=== PATIENT | female | born 1985 | race Caucasian/White ===

== ENCOUNTER → 2018-09-13 | Outpatient (CLI) | payer MEDICAID ==
[~2018-09-13] MED LIST: AMBIEN CR 12.12.5 MG PO; AMBIEN5 MG PO; AMITRIPTYLINE H25 M1 PO; BACTRIM DS 8001 TAB PO; BACTROBAN 22GM22 GM NAS; BENADRYL; CEPHALEXIN500 M1 PO; DEPAKOTE 250MG250 MG PO; ESCITALOPRAM; GLUCOPHAGE XR500 M1 PO; LEXAPRO 10MG10 MG PO; LORTAB 5/500 501 TAB PO; MELATONIN3 M1; MELATONIN5 M1 SL; PAXIL 20MG20 MG PO; PHENERGAN 25 TA25 MG PO; PRENATAL1 TA1 PO; PRILOSEC10 MG PO; PRILOTC; PROVENTIL0.09 MG/A1; PROZAC40 MG PO; SEPTRA DS 8001 TAB PO; TRAZODO50 MG PO
== END ==
LOC: MC.RAD 10:27
DX: N64.3 Galactorrhea not associated with childbirth (principal)

== ENCOUNTER 2018-12-15 17:21 | Emergency (ER) | payer MEDICAID ==
[~2018-12-15] VITALS: Ht 157.5 cm; Wt 86.4 kg
[2018-12-15 17:23] VITALS: TEMP 99
[2018-12-15 17:36] LABS: COLLECTION METHOD CLEAN CATCH
[2018-12-15 17:41] LABS: PH 5 (5-8); URINE APPEARANCE Hazy; URINE BACTERIA None Seen /hpf; URINE BILIRUBIN Negative (NEGATIVE); URINE BLOOD Negative (NEGATIVE); URINE COLOR Yellow; URINE GLUCOSE Negative (NEGATIVE); URINE KETONE Negative (NEGATIVE); URINE LEUKOCYTE ESTERASE Negative (NEGATIVE); URINE NITRATE Negative (NEGATIVE); URINE PROTEIN(semi-quant) Negative (NEGATIVE); URINE RBC 0-2 /hpf; URINE UROBILINOGEN Negative (NEGATIVE)
[2018-12-15 17:57] LABS: BASO # 0.1 (0.0-0.2); BASO % 0.4 % (0.0-2.0); EOS # 0.1 (0.0-0.7); EOS % 0.9 % (0-4.0); GRAN # 8.3 (1.4-6.5); HEMATOCRIT 41.3 % (37.0-47.0); LYMPH # 3.4 (1.2-3.4); LYMPH % 26.3 % (20.0-51.0); MEAN CELL VOLUME 88 fl (80.0-100.0); MEAN CORPUSCULAR HEMOGLOBIN 30 pg (27.0-31.0); MEAN CORPUSCULAR HGB CONC 34 g/dl (33.0-37.0); MEAN PLATELET VOLUME 9.1 fl (7.4-10.4); MONO # 0.9 (0.1-0.6); MONO % 7.2 % (1.7-9.3); PLATELET COUNT 303 K/mm3 (130-400); REDCELL DISTRIBUTION WIDTH-CV 14.6 % (11.5-14.5)
[2018-12-15 18:15] LABS: ALANINE AMINOTRANSFERASE 17 U/L (9-52); ALBUMIN 4.2 gm/dL (3.5-5.0); ALKALINE PHOSPHATASE 45 U/L (50-136); ANION GAP 9 mmol/L (7-16); AST,SGOT 19 U/L (15-37); BILIRUBIN,TOTAL 0.4 mg/dL (0.0-1.0); BLOOD UREA NITROGEN 18 mg/dL (7-17); CALCIUM 9.2 mg/dL (8.4-10.2); CARBON DIOXIDE 23 mmol/L (22-30); CHLORIDE 106 mmol/L (98-107); CREATININE, serum 0.57 (0.52-1.25); GLUCOSE 86 mg/dL (74-106); LIPASE 89 U/L (23-300); POTASSIUM 3.8 mmol/L (3.4-5.0); SODIUM 138 mmol/L (137-145); TOTAL PROTEIN 7.3 gm/dL (6.4-8.2)
[2018-12-15 18:16] LABS: C-REACTIVE PROTEIN < 0.5 mg/dL (0.0-0.9)
[2018-12-15 20:36] VITALS: BP 104/68; PULSE 79
== END 2018-12-15 20:45 | disposition home or self-care (01) ==
LOC: COL.ER 17:21
PROVIDERS: Emergency Medicine
DX: R10.31 Right lower quadrant pain (principal); Z90.49 Acquired absence of other specified parts of digestive tract; Z98.890 Other specified postprocedural states
CPT/HCPCS: J1885; J7030; Q9967

== ENCOUNTER 2019-01-19 19:34 | Emergency (ER) | payer MEDICAID ==
[~2019-01-19] VITALS: Ht 160 cm; Wt 86.8 kg
[2019-01-19 19:44] VITALS: BP 115/63; TEMP 98.6
[2019-01-19] MEDS ORDERED: GLUCOPHAGE500 MG/TAB PO (19:49)
[2019-01-19] MEDS ORDERED: PRIL40 PO (19:49)
[2019-01-19] MEDS ORDERED: PRENATAL (19:50)
[2019-01-19 20:49] LABS: COLLECTION METHOD CLEAN CATCH
[2019-01-19 20:54] LABS: PH 5 (5-8); SQUAMOUS EPITHELIAL 0-2 /hpf; URINE APPEARANCE Clear; URINE BACTERIA None Seen /hpf; URINE BILIRUBIN Negative (NEGATIVE); URINE BLOOD Negative (NEGATIVE); URINE COLOR Yellow; URINE GLUCOSE Negative (NEGATIVE); URINE KETONE Negative (NEGATIVE); URINE LEUKOCYTE ESTERASE Negative (NEGATIVE); URINE NITRATE Negative (NEGATIVE); URINE PROTEIN(semi-quant) Negative (NEGATIVE); URINE RBC None Seen /hpf; URINE UROBILINOGEN Negative (NEGATIVE)
[2019-01-19 21:42] VITALS: PULSE 69
== END 2019-01-19 21:42 | disposition home or self-care (01) ==
LOC: COL.ER 19:34
PROVIDERS: Emergency Medicine
DX: O20.0 Threatened abortion (principal); O99.331 Smoking (tobacco) complicating pregnancy, first trimester; O99.611 Diseases of the digestive system complicating pregnancy, first trimester; K21.9 Gastro-esophageal reflux disease without esophagitis; Z90.49 Acquired absence of other specified parts of digestive tract; Z98.890 Other specified postprocedural states; Z3A.01 Less than 8 weeks gestation of pregnancy

== ENCOUNTER 2019-01-23 14:55 | Emergency (ER) | payer MEDICAID ==
[~2019-01-23] VITALS: Ht 162.6 cm; Wt 90.0 kg
[~2019-01-23 14:55] MED LIST changes: +GLUCOPHAGE500 MG/TAB PO; +PRENATAL; +PRIL40 PO
[2019-01-23 14:59] VITALS: BP 122/62; TEMP 98.2
[2019-01-23 15:33] VITALS: PULSE 96
== END 2019-01-23 15:33 | disposition home or self-care (01) ==
LOC: COL.ER 14:55
DX: S05.01XA Injury of conjunctiva and corneal abrasion without foreign body, right eye, initial encounter (principal); W22.8XXA Striking against or struck by other objects, initial encounter

== ENCOUNTER 2019-06-03 19:53 | Outpatient (CLI) | payer MEDICAID ==
[~2019-06-03] VITALS: Ht 160 cm; Wt 110.5 kg
--- NOTE | 2019-06-03 20:00 | NUR ---
G4L1. 26.6. Wheeled to LDR 6. Clean gown on. EFM and TOCO explained and applied. Pt states that around 1400 today she started feeling tightening/pressure in her lower abdomen that is consistent and states she has not felt baby move as much today. Pt states when she laid down on the bed she did feel infant kick. Denies LOF or vaginal bleeding. VSS and Assessment completed. 2027: updated on pts status. See physican notification. Pt updated on UA order. Pt states she is unable to void at this time. Ice water given.
[2019-06-03 21:00] VITALS: BP 108/71; PULSE 91; TEMP 98.4
[2019-06-03 21:20] LABS: COLLECTION METHOD CLEAN CATCH
[2019-06-03 21:27] LABS: PH 6 (5-8); URINE APPEARANCE Clear; URINE BACTERIA Rare /hpf; URINE BILIRUBIN Negative (NEGATIVE); URINE BLOOD Negative (NEGATIVE); URINE COLOR Yellow; URINE GLUCOSE Negative (NEGATIVE); URINE KETONE Negative (NEGATIVE); URINE LEUKOCYTE ESTERASE Negative (NEGATIVE); URINE NITRATE Negative (NEGATIVE); URINE PROTEIN(semi-quant) Negative (NEGATIVE); URINE RBC 0-2 /hpf; URINE UROBILINOGEN Negative (NEGATIVE); URINE WBC 0-2 /hpf
[2019-06-03 21:30] VITALS: BP 118/58; PULSE 83
--- NOTE | 2019-06-03 21:43 | NUR ---
Pt off monitors to void for UA. 2149: notified of lab results. discharge instructions received. 2152: Pt off monitors to change. 2199: Discharge instructions given to pt who verbalizes understanding. Pt ambulatory off unit.
[2019-06-03 21:53] VITALS: BP 118/61; PULSE 81
== END 2019-06-03 22:00 | disposition home or self-care (01) ==
LOC: LDRO 19:53 → LDR 21:08 → LDRO 22:00
PROVIDERS: Obstetrics & Gynecology
DX: O36.8120 Decreased fetal movements, second trimester, not applicable or unspecified (principal); Z3A.26 26 weeks gestation of pregnancy
CPT/HCPCS: OP

== ENCOUNTER 2019-08-27 05:40 | Inpatient (IN) | payer MEDICAID ==
[2019-08-27] VITALS (20 sets, daily range): BP systolic 90–1113; BP diastolic 51–74; PULSE 70–90; TEMP 97.7–98.2
[~2019-08-27] VITALS: Ht 160 cm; Wt 120.9 kg
[2019-08-27] MEDS ORDERED: BENADRYL50 MG PO (06:29)
--- NOTE | 2019-08-27 06:38 | NUR ---
HERE WITH FOB FOR REPEAT C/S. ORIENTED TO ROOM AND PLAN OF CARE/ EFM ON. IV START TO LEFT HAND BUTUNABLE TO OBTAIN LABS- LAB NOTIFIED TO DRAW ADMIT WORK. PT TO LL DUE TO ABSENT VARIAIBLILTY.LR BOLUS BEGUN. 0610 BEDSID EREPORT TO Karla CHAVEZ
[2019-08-27 06:40] LABS: BASO # 0.1 (0.0-0.2); BASO % 0.4 % (0.0-2.0); EOS # 0.3 (0.0-0.7); EOS % 2.5 % (0-4.0); GRAN % 68.8 % (42.2-75.2); LYMPH # 2.4 (1.2-3.4); LYMPH % 18.4 % (20.0-51.0); MEAN CELL VOLUME 90 fl (80.0-100.0); MEAN CORPUSCULAR HEMOGLOBIN 30 pg (27.0-31.0); MEAN CORPUSCULAR HGB CONC 33 g/dl (33.0-37.0); MEAN PLATELET VOLUME 9.3 fl (7.4-10.4); MONO # 1.2 (0.1-0.6); MONO % 8.9 % (1.7-9.3); PLATELET COUNT 222 K/mm3 (130-400); REDCELL DISTRIBUTION WIDTH-CV 14.4 % (11.5-14.5)
[2019-08-27 06:48] LABS: HEMATOCRIT 33.3 % (37.0-47.0)
--- NOTE | 2019-08-27 15:11 | NUR ---
Up to bathroom with stand by assist. Urine cath removed. Pericare provided. Clean mesh panties and pad provided. Clean bed pad on. Pt up in room.
[2019-08-28] VITALS: BP 101/51; PULSE 86; TEMP 98
[2019-08-28 05:00] VITALS: BP 108/61; PULSE 87; TEMP 97.8
[2019-08-28 07:06] LABS: HEMOGLOBIN 11.2 g/dl (12.5-16.0)
[2019-08-28 07:12] LABS: HEMATOCRIT 33.6 % (37.0-47.0)
[2019-08-28 07:44] VITALS: BP 121/62; PULSE 84; TEMP 97.9
[2019-08-28] MEDS ORDERED: IBU600 MG PO (08:33)
[2019-08-28] MEDS ORDERED: PERCOCET 325 MG1 TA2 PO (08:33)
[2019-08-28 15:34] VITALS: BP 116/62; PULSE 82
[2019-08-28 20:00] VITALS: BP 107/86; PULSE 82; TEMP 97.6
--- NOTE | 2019-08-29 | NUR ---
Report given to JULEE Levi.
[2019-08-29 07:15] VITALS: BP 117/61; PULSE 82; TEMP 97.1
--- NOTE | 2019-08-29 07:15 | NUR ---
Rests in bed, alert. Request pain medication. 0725 Percocet 5/325 mg two given per request and as ordered.
--- NOTE | 2019-08-29 09:15 | NUR ---
Rests in bed holding baby. 0930 Ibuprofen 600 mg given as ordered.
--- NOTE | 2019-08-29 11:16 | NUR ---
Initial visit attempt; Apran fontana [employer] left card of congratulations for the of thir daughter and information regarding the availability of spiritual care at [facility].
--- NOTE | 2019-08-29 13:15 | NUR ---
Rests in bed, alert. Discharge instructions given, verbalizes understanding.
== END 2019-08-29 13:30 | disposition home or self-care (01) | DRG 788 ==
LOC: OB 05:40
PROVIDERS: ADMIT Obstetrics & Gynecology
PROC: 10D00Z1 Extraction of Products of Conception, Low, Open Approach (ICD-10-PCS; principal; 2019-08-27)
DX: O34.211 Maternal care for low transverse scar from previous cesarean delivery (principal); O99.344 Other mental disorders complicating childbirth; O99.214 Obesity complicating childbirth; E66.9 Obesity, unspecified; F41.9 Anxiety disorder, unspecified; O99.824 Streptococcus B carrier state complicating childbirth; O99.284 Endocrine, nutritional and metabolic diseases complicating childbirth; E28.2 Polycystic ovarian syndrome; F32.9 Major depressive disorder, single episode, unspecified; Z3A.39 39 weeks gestation of pregnancy; Z37.0 Single live birth
CPT/HCPCS: J0690; J1885; J2250; J2270; J2370; J2405; J2550; J2590; J2704; J2765; J7120

== ENCOUNTER 2020-11-05 10:30 | Outpatient (RCR) | payer MEDICAID ==
[~2020-11-05 10:30] MED LIST changes: +BENADRYL50 MG PO; +IBU600 MG PO; +PERCOCET 325 MG1 TA2 PO
== END 2020-12-03 11:19 | disposition still patient (30) ==
LOC: WSPT 10:30
DX: M25.512 Pain in left shoulder (principal); M75.42 Impingement syndrome of left shoulder
CPT/HCPCS: G0283-GP

== ENCOUNTER 2021-02-01 13:53 | Outpatient (RCR) | payer MEDICAID | END 2021-02-09 14:58 | LOC: WSPT 13:53 | DX: M25.512 Pain in left shoulder (principal) ==

== ENCOUNTER 2021-04-06 09:45 | Outpatient (RCR) | payer MEDICAID | END 2021-05-18 | LOC: WSPT | DX: Z01.818 Encounter for other preprocedural examination (principal); Z98.890 Other specified postprocedural states | CPT/HCPCS: G0283-GP ==

== ENCOUNTER 2021-11-10 10:26 | Outpatient (RCR) | payer MEDICAID | END 2021-12-07 | disposition home or self-care (01) | LOC: WSPT | DX: M54.50 Low back pain, unspecified (principal) ==

== ENCOUNTER → 2022-01-06 | Outpatient (RCR) | payer MEDICAID | END | disposition home or self-care (01) | LOC: WSPT | DX: M54.50 Low back pain, unspecified (principal) ==

== ENCOUNTER 2022-01-19 14:15 | Outpatient (RCR) | payer MEDICAID | END 2022-02-06 | disposition home or self-care (01) | LOC: WSC | DX: M54.50 Low back pain, unspecified (principal) ==

== ENCOUNTER → 2022-03-09 | Outpatient (RCR) | payer MEDICAID | END | disposition home or self-care (01) | LOC: WSPT → WSC 02-07 10:30 → WSPT 03-01 13:30 | DX: M54.50 Low back pain, unspecified (principal) ==